=== PATIENT | female | born 1970 | race African-American/Black ===

== ENCOUNTER 2016-10-29 16:00 | Emergency (ER) | payer OTHER ==
[2016-10-29 16:05] VITALS: TEMP 98.3; BMI 27.9
[2016-10-29] MEDS ORDERED: ACETAMINOPHEN 325 MG TABLET (FP) PO ONE (17:13)
[2016-10-29] MEDS ORDERED: SODIUM CHLORIDE 1,000 ML IV STA (17:13)
[2016-10-29] MEDS ORDERED: METOCLOPRAMIDE HCL INJECTION 10 MG/2 ML VIAL IVPB ONE (17:13)
[2016-10-29] MEDS ORDERED: ACETAMINOPHEN 325 MG TABLET (FP) ONE (17:23)
[2016-10-29] MEDS ORDERED: METOCLOPRAMIDE HCL INJECTION 10 MG/2 ML VIAL ONE (17:23)
--- NOTE | 2016-10-29 17:23 | PDOC ---
History of Present Illness - General History Source: Patient Exam Limitations: No Limitations - History of Present Illness Initial Comments: 10/29/16 17:37 The patient is a 46 year old female, with a significant past medical history of hypothyroidism, RA, fibromyalgia, migraines and borderline diabetes, who presents to the emergency department with headache, dizziness, blurry vision and nausea. She describes her headache is bi-temporal, ranging from mild to moderate, without radiation. She reports that light and noise exacerbates her pain. She rates her headache as an 8/10 in severity. She states that when she had the headache started he had an aura type of sensation and began to feel dizzy. She reports that her blurry vision has resolved. She notes that her last migraine was 2 years ago. She states that she has been under a lot of stress lately, losing 2 family members in the last 3 days. The patient denies chest pain, shortness of breath. Denies fever, chills, vomit , diarrhea and constipation. Denies dysuria, frequency, urgency and hematuria. Family medical history: Mother, 2 aunts, niece; Aneurysm Allergies: Codeine Past surgical history: Abdominal hernia repair, left shoulder surgery. Social history: She denies alcohol, tobacco or drug use PCP - Dr. Yemi Ruiz <Kris Cobb - Last Filed: 10/29/16 17:36> - General History Source: Patient, Other Exam Limitations: No Limitations <Marquise Meyers - Last Filed: 10/31/16 15:15> - General Chief Complaint: Blurry Vision Stated Complaint: HEADACHE, BLURRY VISION Time Seen by Provider: 10/29/16 17:02 Past History <Kris Cobb - Last Filed: 10/29/16 17:36> - Past Medical History Asthma: No Cancer: No Diabetes: No Seizures: No Thyroid Disease: Yes (hypo) Other medical history: migraines, fibromyalgia, RA - Surgical History Abdominal Surgery: Yes (HERNIA) - Reproductive History Cervical CA: No Dysfunctional Uterine Bleeding: No Ectopic : No Endometrial CA: No Polycystic Ovaries: No - Immunization History Immunization Up to Date: Yes - Psycho/Social/Smoking Cessation Hx Anxiety: No Suicidal Ideation: No Smoking Status: No Smoking History: Never smoked Number of Cigarettes Smoked Daily: 0 Cigars Per Day: 0 Hx Alcohol Use: No Drug/Substance Use Hx: No Substance Use Type: None <Marquise Meyers - Last Filed: 10/31/16 15:15> - Past Medical History Allergies/Adverse Reactions: Allergies Allergy/AdvReac Type Severity Reaction Status Date / Time codeine [Codeine] Allergy Severe Itching Verified 10/29/16 16:05 Home Medications: Ambulatory Orders Levothyroxine [Synthroid -] 200 mcg PO DAILY 04/15/12 Metoclopramide HCl [Reglan] 10 mg PO Q6H PRN #15 tablet 10/29/16 Review of Systems - Review of Systems Able to Perform ROS?: Yes Comments:: 10/29/16 17:37 GENERAL/CONSTITUTIONAL: No fever or chills. No weakness. HEAD, EYES, EARS, NOSE AND THROAT: +Blurry vision. No ear pain or discharge. No sore throat. CARDIOVASCULAR: No chest pain or shortness of breath RESPIRATORY: No cough, wheezing, or hemoptysis. GASTROINTESTINAL: No nausea, vomiting, diarrhea or constipation. GENITOURINARY: No dysuria, frequency, or change in urination. MUSCULOSKELETAL: No joint or muscle swelling or pain. No neck or back pain. SKIN: No rash NEUROLOGIC: +Headache, dizziness. No loss of consciousness, or change in strength/sensation. ENDOCRINE: No increased thirst. No abnormal weight change HEMATOLOGIC/LYMPHATIC: No anemia, easy bleeding, or history of blood clots. ALLERGIC/IMMUNOLOGIC: No hives or skin allergy. <Kris Cobb - Last Filed: 10/29/16 17:36> *Physical Exam - Vital Signs Last Vital Signs Temp Pulse Resp BP Pulse Ox 98.3 F 74 20 118/71 98 10/29/16 16:02 10/29/16 16:02 10/29/16 16:02 10/29/16 16:02 10/29/16 16:02 - Physical Exam Comments: 10/29/16 17:37 GENERAL: Awake, alert, and fully oriented, in no acute distress HEAD: No signs of trauma, normocephalic, atraumatic EYES: PERRLA, EOMI, sclera anicteric, conjunctiva clear ENT: Auricles normal inspection, hearing grossly normal, nares patent, oropharynx clear without exudates. Moist mucosa NECK: Normal ROM, supple, no lymphadenopathy, JVD, or masses LUNGS: No distress, speaks full sentences, clear to auscultation bilaterally HEART: Regular rate and rhythm, normal S1 and S2, no murmurs, rubs or gallops, peripheral pulses normal and equal bilaterally. ABDOMEN: Soft, nontender, normoactive bowel sounds. No guarding, no rebound. No masses EXTREMITIES: Normal inspection, Normal range of motion, no edema. No clubbing or cyanosis. NEUROLOGY: Alert, awake, appropriate. Cranial nerves 2-12 intact. No deficits to light touch and temperature in face, upper extremities and lower extremities. No motor deficits in the in face, upper extremities and lower extremities. No pronator drift. Normoreflexic in the upper and lower extremities. Normal speech. Toes are down-going bilaterally. Gait is normal without ataxia. No dysmetria. No dysdiadochokinesis. No skew deviation. No abnormal nystagmus. Rhomberg is +/-. Head thrust test is +/-. Dixs-Hallpike test is +/-. SKIN: Warm, Dry, normal turgor, no rashes or lesions noted. <Kris Cobb - Last Filed: 10/29/16 17:36> - Vital Signs Last Vital Signs Temp Pulse Resp BP Pulse Ox 98.3 F 74 20 118/71 98 10/29/16 16:02 10/29/16 16:02 10/29/16 16:02 10/29/16 16:02 10/29/16 16:02 - Physical Exam Comments: 10/31/16 15:15 ADDENDUM TO SCRIBE NOTE: I did not test for: No skew deviation. No abnormal nystagmus. Rhomberg, Head thrust test, Dixs-Hallpike test or Babinski's. Please disregard this from the scribe section. <Marquise Meyers - Last Filed: 10/31/16 15:15> ED Treatment Course - Medications Given in the ED: ED Medications Discontinued Medications Generic Name Dose Route Start Last Admin Trade Name Onelq PRN Reason Stop Dose Admin Acetaminophen 650 mg 10/29/16 17:13 10/29/16 17:33 Tylenol - PO 10/29/16 17:14 650 mg ONCE ONE Administration Metoclopramide HCl 10 mg 10/29/16 17:13 10/29/16 17:33 Reglan Injection - IVPB 10/29/16 17:14 10 mg ONCE ONE Administration <Kris Cobb - Last Filed: 10/29/16 17:36> Medical Decision Making - Medical Decision Making 10/29/16 17:19 A portion of this note was written by my scribe, under my supervision. Vital Signs Temp Pulse Resp BP Pulse Ox 98.3 F 74 20 118/71 98 10/29/16 16:02 10/29/16 16:02 10/29/16 16:02 10/29/16 16:02 10/29/16 16:02 46 year old female with PMH hypothyroidism, RA, fibromyalgia, borderline DM, and family history of aneurysm presents to the emergency department for headaches since today. Patient reported a headache similar to her prior headaches. Last time she was here was a proximal a year ago which improved with IV Reglan. She has a history of migraines and has photophobia and tension-like headaches. It wasn't thunderclap in with a worse headache of her life. Reports feels somewhat her prior headaches. I do not suspect meningitis or cirrhotic or hemorrhage at this time. I do suspect that this is a migraine. We'll treat with IV medications and reassess. The patient is undergoing a significant amount stress with several of her family members recently dying from cancer. 10/29/16 19:41 Urine test negative. The patient reports feeling better with tylenol, IV reglan and toradol. Will discharge with neurology follow up. Return precautions given. Pt verbalizes understanding and agrees with plan. I discussed the physical exam findings, ancillary test results and final diagnoses with the patient. I answered all of the patient's questions. The patient was satisfied with the care received and felt comfortable with the discharge plan and treatment plan. The patient will call their primary care physician within 24 hours to arrange follow-up and will return to the Emergency Department with any new, persistant or worsening symptoms. <Marquise Meyers - Last Filed: 10/31/16 15:15> *DC/Admit/Observation/Transfer - Attestations Scribe Attestion: 10/29/16 17:38 Documentation prepared by Kris Cobb, acting as biomedical equipment tech for Marquise Meyers MD. <Kris Cobb - Last Filed: 10/29/16 17:36> - Discharge Dispostion Admit: No <Marquise Meyers - Last Filed: 10/31/16 15:15> Diagnosis at time of Disposition: Headache Qualifiers: Headache type: unspecified Headache chronicity pattern: acute headache Intractability: not intractable Qualified Code(s): R51 - Headache - Discharge Dispostion Disposition: HOME Condition at time of disposition: Improved - Prescriptions Prescriptions: Metoclopramide HCl [Reglan] 10 mg PO Q6H PRN #15 tablet PRN Reason: Headache/Nausea - Referrals Referrals: Yemi Ruiz [Primary Care Provider] - Marco Casarez MD [Staff Physician] - - Patient Instructions Printed Discharge Instructions: DI for Migraine, DI for Headache Additional Instructions: Take 500 mg naproxen every 12 hours as needed for headache. You may also take 10 mg reglan every 6 hours as needed for nausea/headache. Please follow up with a neurologist. If you have uncontrollable headache, persistent vomiting, please return to the ER for further evaluation.
[2016-10-29] MEDS ORDERED: KETOROLAC TROMETHAMINE 30 MG/1 ML VIAL IVPUSH ONE (18:27)
[2016-10-29] MEDS ORDERED: KETOROLAC TROMETHAMINE 60 MG/2 ML VIAL ONE (18:31)
[2016-10-29 19:59] VITALS: BP 108/72; PULSE 81
== END 2016-10-29 19:59 | disposition home or self-care (01) ==
LOC: JER 16:00
PROC: 3E0333Z Introduction of Anti-inflammatory into Peripheral Vein, Percutaneous Approach (ICD-10-PCS; principal; 2016-10-29)
PROC: 3E033GC Introduction of Other Therapeutic Substance into Peripheral Vein, Percutaneous Approach (ICD-10-PCS; 2016-10-29)
PROC: 3E0337Z Introduction of Electrolytic and Water Balance Substance into Peripheral Vein, Percutaneous Approach (ICD-10-PCS; 2016-10-29)
DX: R51 Headache (principal); E03.9 Hypothyroidism, unspecified; M06.9 Rheumatoid arthritis, unspecified; M79.7 Fibromyalgia
CPT/HCPCS: 84703; 96361; 96374; 96375; 99283-25

== ENCOUNTER 2017-10-26 16:51 | Emergency (ER) | payer OTHER ==
--- NOTE | 2017-10-26 17:21 | PDOC ---
Rapid Medical Evaluation Time Seen by Provider: 10/26/17 17:17 Medical Evaluation: Allergies Allergy/AdvReac Type Severity Reaction Status Date / Time codeine [Codeine] Allergy Severe Itching Verified 10/26/17 17:18 10/26/17 17:19 Pt presents to the ED: rt 2nd toe with swelling and red, no drainage, denies injury, rt hip pain worsened with ambulation, no injury, no swelling, no rash Pt on brief exam: vss, ambulatory, rt 2nd toe with edema, Pt ordered for: none Pt to proceed to the ED Discharge Disposition - Diagnosis Toe pain, right - Referrals - Patient Instructions - Post Discharge Activity
[2017-10-26 17:22] VITALS: BP 125/72; PULSE 89; TEMP 98.8; BMI 28.7
--- NOTE | 2017-10-26 18:16 | PDOC ---
History of Present Illness - General Chief Complaint: Pain Stated Complaint: SWOLLEN RT FOOT/HIP Time Seen by Provider: 10/26/17 17:17 History Source: Patient Exam Limitations: No Limitations - History of Present Illness Initial Comments: 10/26/17 18:20 47-year-old female with past medical history of rheumatoid arthritis, hypothyroidism, fibromyalgia and borderline diabetes. Patient presents to the emergency department complaining of slight redness/pain to the right base of her second toe/dorsally times one week with 3/10 dull nonradiating intermittent right-sided hip pain. Patient states pain is exacerbated on weight-bear and alleviated at rest. Patient denies any injury, fall, head/neck/back pains, chest pain, shortness of breath, extremity numbness or tingling sensation. Past History - Past Medical History Allergies/Adverse Reactions: Allergies Allergy/AdvReac Type Severity Reaction Status Date / Time codeine [Codeine] Allergy Severe Itching Verified 10/26/17 17:18 Home Medications: Ambulatory Orders Levothyroxine [Synthroid -] 200 mcg PO DAILY 04/15/12 Sulfamethoxazole/Trimethoprim [Bactrim Ds -] 1 tab PO BID #14 tablet 10/26/17 Asthma: No Cancer: No COPD: No Diabetes: No Seizures: No Thyroid Disease: Yes (hypo) - Surgical History Abdominal Surgery: Yes (HERNIA) - Reproductive History Cervical CA: No Dysfunctional Uterine Bleeding: No Ectopic : No Endometrial CA: No Polycystic Ovaries: No - Immunization History Immunization Up to Date: Yes - Suicide/Smoking/Psychosocial Hx Smoking Status: No Smoking History: Never smoked Number of Cigarettes Smoked Daily: 0 Cigars Per Day: 0 Hx Alcohol Use: No Drug/Substance Use Hx: No Substance Use Type: None Review of Systems - Review of Systems Able to Perform ROS?: Yes Comments:: 10/26/17 18:17 CONSTITUTIONAL: Absent: fever, chills, diaphoresis, generalized weakness, malaise, loss of appetite MUSCULOSKELETAL: +right pain/ right 2nd toe pain Absent: myalgia, arthralgia, joint swelling SKIN: Absent: rash, itching, pallorHEMATOLOGIC/IMMUNOLOGIC: Absent: easy bleeding, easy bruising, lymphadenopathy, frequent infections ENDOCRINE: Absent: unexplained weight gain, unexplained weight loss, heat intolerance, cold intolerance NEUROLOGIC: Absent: headache, focal weakness or paresthesias, dizziness, unsteady gait, seizure, mental status changes, bladder or bowel incontinence PSYCHIATRIC: Absent: anxiety, depression, suicidal or homicidal ideation, hallucinations. 10/26/17 18:20 Is the patient limited Danish proficient: No *Physical Exam - Vital Signs Last Vital Signs Temp Pulse Resp BP Pulse Ox 98.8 F 89 19 125/72 97 10/26/17 17:18 10/26/17 17:18 10/26/17 17:18 10/26/17 17:18 10/26/17 17:18 - Physical Exam Comments: 10/26/17 18:17 GENERAL: Well developed, well nourished. Awake and alert. No acute distress. HEENT: Normocephalic, atraumatic. PERRLA, EOMI. No conjunctival pallor. Sclera are non- icteric. Moist mucous membranes. Oropharynx is clear. NECK: Supple. Full ROM. No JVD. Carotid pulses 2+ and symmetric, without bruits. No thyromegaly. No lymphadenopathy. CARDIOVASCULAR: Regular rate and rhythm. No murmurs, rubs, or gallops. Distal pulses are 2+ and symmetric. PULMONARY: No evidence of respiratory distress. Lungs clear to auscultation bilaterally. No wheezing, rales or rhonchi. MUSCULOSKELETAL +Right hip pain on ext rotation, neg obv deformities, neg pain on palp right knee F.R>O>M./neg pain on palp/neg swelling RIght ankl;e F.R.O>M./neg pain on palp/2+dp pulse Neg achilles pain/deficit on palp RIght foot/2+pedal pulse right 2nd toe/+mild erythema to dorsal base without lymphangitis/neg drainage/ cap refill <2sec Normal range of motion at all joints. No bony deformities or tenderness. No CVA tenderness. EXTREMITIES: No cyanosis. No clubbing. No edema. No calf tenderness. SKIN: Warm and dry. Normal capillary refill. No rashes. No jaundice. NEUROLOGICAL: Alert, awake, appropriate. Cranial nerves 2-12 intact. No deficits to light touch and temperature in face, upper extremities and lower extremities. No motor deficits in the in face, upper extremities and lower extremities. Normoreflexic in the upper and lower extremities. Normal speech. Toes are down- going bilaterally. Gait is normal without ataxia. ED Treatment Course - RADIOLOGY Radiograph Interpretation: 10/26/17 19:08 Xray right hip; 3v neg fx/dislocations xray right toese; 2v neg fx/dislocations *DC/Admit/Observation/Transfer Diagnosis at time of Disposition: Toe pain, right, Cellulitis of toe, right, Hip pain, right - Discharge Dispostion Disposition: HOME Condition at time of disposition: Stable Admit: No - Prescriptions Prescriptions: Sulfamethoxazole/Trimethoprim [Bactrim Ds -] 1 tab PO BID #14 tablet - Referrals Referrals: Avinash Romo MD [Primary Care Provider] - Yosi Benedict MD [Staff Physician] - - Patient Instructions Printed Discharge Instructions: DI for Cellulitis -- Adult, DI for Chronic Pain -- Adult Additional Instructions: Ice; 20 mins on alternating with 20 mins off for 48 hours while awake. Rest Elevate Follow up with your orthopedic surgeon or the one listed on the discharge form. Return to the ER for severe/persistent/worsening symptoms, extremity numbness/ tingling sensation. - Post Discharge Activity Progress Note - Progress Note Progress Note: Patient refuses U . Patient states she is premenopausal and is not . Patient states she wishes to sign a form stating that she will be held liable if she is as she gets her x-rays in the emergency department tonight.
[2017-10-26] MEDS ORDERED: IBUPROFEN 400 MG TABLET (FP) PO ONE ×2 (19:07→19:12)
[2017-10-26] MEDS ORDERED: SULFAMETHOXAZOLE/TRIMETHOPRIM 800MG/160MG D.S. TABLET PO ONE (19:08)
[2017-10-26] MEDS ORDERED: SULFAMETHOXAZOLE/TRIMETHOPRIM 800MG/160MG D.S. TABLET ONE (19:12)
== END 2017-10-26 19:15 | disposition home or self-care (01) ==
LOC: JERFT 16:51
DX: L03.031 Cellulitis of right toe (principal); M25.551 Pain in right hip; E03.9 Hypothyroidism, unspecified; E11.9 Type 2 diabetes mellitus without complications; M06.9 Rheumatoid arthritis, unspecified; M79.7 Fibromyalgia
CPT/HCPCS: 73502-TC-RT; 73660-TC; 99281-25

== ENCOUNTER 2019-01-14 13:56 | Emergency (ER) | payer OTHER ==
[2019-01-14 14:05] VITALS: BP 119/76; PULSE 83; TEMP 98.4; BMI 32.3
[2019-01-14] MEDS ORDERED: IBUPROFEN 400 MG TABLET (FP) PO ONE ×2 (14:30→14:32)
--- NOTE | 2019-01-14 14:59 | PDOC ---
History of Present Illness - General Chief Complaint: Pain Stated Complaint: BILAT KNEE PAIN Time Seen by Provider: 01/14/19 14:11 History Source: Patient Exam Limitations: No Limitations Past History - Past Medical History Allergies/Adverse Reactions: Allergies Allergy/AdvReac Type Severity Reaction Status Date / Time codeine [Codeine] Allergy Severe Itching Verified 01/14/19 14:05 Home Medications: Ambulatory Orders Levothyroxine [Synthroid -] 200 mcg PO DAILY 04/15/12 Asthma: No Cancer: No COPD: No Diabetes: No Seizures: No Thyroid Disease: Yes (hypo) - Surgical History Abdominal Surgery: Yes (HERNIA) - Reproductive History Cervical CA: No Dysfunctional Uterine Bleeding: No Ectopic : No Endometrial CA: No Polycystic Ovaries: No - Immunization History Immunization Up to Date: Yes - Suicide/Smoking/Psychosocial Hx Smoking Status: No Smoking History: Never smoked Have you smoked in the past 12 months: No Number of Cigarettes Smoked Daily: 0 Cigars Per Day: 0 Information on smoking cessation initiated: No Hx Alcohol Use: Yes Drug/Substance Use Hx: No Substance Use Type: None *Physical Exam - Vital Signs Last Vital Signs Temp Pulse Resp BP Pulse Ox 98.4 F 83 18 119/76 100 01/14/19 14:02 01/14/19 14:02 01/14/19 14:02 01/14/19 14:02 01/14/19 14:02 - Physical Exam General Appearance: No: Apparent Distress Respiratory/Chest: positive: Lungs Clear, Normal Breath Sounds. negative: Respiratory Distress Cardiovascular: positive: Regular Rhythm, Regular Rate, S1, S2. negative: Murmur Musculoskeletal: positive: Other (mild swelling along lateral aspect of L knee, no deformity of extremities, FROM of BLE; B/L feet also unremarkable with no skin lesions or rash noted, no corns, no calluses; no swelling or erythema of extremities, pedal pulses 2+ B/L, normal skin color) Extremity: positive: Normal Capillary Refill, Normal Range of Motion. negative : Coldness, Cyanosis, Pedal Edema, Swelling, Calf Tenderness, Erythema Integumentary: positive: Normal Color, Dry, Warm. negative: Rash Neurologic: positive: Alert, Normal Mood/Affect ED Treatment Course - RADIOLOGY Radiology Studies Ordered: Category Date Time Status FOOT-LEFT [RAD] Stat Radiology 01/14/19 14:29 Ordered FOOT-RIGHT [RAD] Stat Radiology 01/14/19 14:29 Ordered KNEE 4 POS-LEFT [RAD] Stat Radiology 01/14/19 14:29 Ordered KNEE 4 POS-RIGHT [RAD] Stat Radiology 01/14/19 14:29 Ordered - Medications Given in the ED: ED Medications Discontinued Medications Generic Name Dose Route Start Last Admin Trade Name Vanessa PRN Reason Stop Dose Admin Ibuprofen 800 mg 01/14/19 14:30 01/14/19 14:39 Motrin - PO 01/14/19 14:31 800 mg ONCE ONE Administration Medical Decision Making - Medical Decision Making 48 y/o F hx of hypothyroidism, fibromyalgia, DM presents with B/L knee pain (L>R ). L knee has been bothering her for around a year and R knee for past several months, but pain exacerbated past few weeks. Denies trauma. Has been taking Naprosyn which has been helping with her pain. Has not seen PCP re: the pain. Also mentions pain beneath toes of B/L feet the past few weeks. Denies numbness/ tingling/weakness of extremities. B/L knee pain - probable arthritis Plan: Xray, Motrin B/L toe pain - PE unremarkable, cause unclear, ?Fenton neuroma though nothing obviously palpable on exam Plan: Xray 01/14/19 14:56 Xrays with no acute findings Will refer to podiatry for further eval 01/14/19 15:23 *DC/Admit/Observation/Transfer Diagnosis at time of Disposition: Toe pain, bilateral Knee pain, bilateral Qualifiers: Chronicity: chronic Qualified Code(s): M25.561 - Pain in right knee; M25.562 - Pain in left knee; G89.29 - Other chronic pain - Discharge Dispostion Disposition: HOME Condition at time of disposition: Stable Decision to Admit order: No - Referrals Referrals: Avinash Romo MD [Primary Care Provider] - 2 Days Jaylan Staples MD [Staff Physician] - 2 Days - Patient Instructions Printed Discharge Instructions: DI for Arthritis, Fenton Neuroma Additional Instructions: Thank you for choosing [facility]. It was a pleasure taking care of you. Your xrays were unremarkable Possibly, your knee pain is related to arthritis. Continue Naprosyn if that is helping with your pain. You may possibly have Fenton's neuroma - avoid wearing high heeled shoes. You were referred to learning support resource room teacher for further eval. Continue follow-up with your doctor Return to the Emergency Department if your symptoms worsen or persist or have other concerning symptoms. - Post Discharge Activity
== END 2019-01-14 15:35 | disposition home or self-care (01) ==
LOC: JERFT 13:56
DX: M25.561 Pain in right knee (principal); G89.29 Other chronic pain; E03.9 Hypothyroidism, unspecified
CPT/HCPCS: 73564-TC-LT-FY; 73564-TC-RT-FY; 73630-TC-LT; 73630-TC-RT-FY; 99281-25

== ENCOUNTER 2021-11-06 04:35 | Day surgery (SDC) | payer OTHER ==
[2021-10-31 13:16] VITALS: BMI 34.2
[~2021-11-06 04:35] MED LIST: ACETAMINOPHEN 325 MG TABLET (FP) PO PRN; EPINEPHrine/PF 1 MG/1 ML (1:1,000) AMPULE IO ONE
[2021-11-06] MEDS ORDERED: KETOROLAC TROMETHAMINE 0.5% EYE DROP 1 DROP DROPS ONE (09:08)
[2021-11-06] MEDS ORDERED: PHENYLEPHRINE 2.5% OPTHALMIC DROP BOTTLE ONE (09:08)
[2021-11-06] MEDS ORDERED: CYCLOPENTOLATE HCL 1% OPHTH SOLN 2 ML BOTTLE ONE (09:08)
[2021-11-06] MEDS ORDERED: TROPICAMIDE 1% OPHTH SOLN 15 ML BOTTLE ONE (09:08)
[2021-11-06] MEDS ORDERED: OFLOXACIN 0.3% OPHTHALMIC SOLUTION 5 ML BOTTLE ONE (09:08)
[2021-11-06] MEDS: TROPICAMIDE 1% OPHTH SOLN 15 ML BOTTLE OP SCH ×3 (09:30→09:43)
[2021-11-06] MEDS: CYCLOPENTOLATE HCL 1% OPHTH SOLN 2 ML BOTTLE OP SCH ×3 (09:30→09:44)
[2021-11-06] MEDS: KETOROLAC TROMETHAMINE 0.5% EYE DROP 1 DROP DROPS OP SCH ×3 (09:30→09:44)
[2021-11-06] MEDS: PHENYLEPHRINE 2.5% OPHTH SOLN 15 ML BOTTLE OP SCH ×3 (09:30→09:43)
[2021-11-06] MEDS: OFLOXACIN 0.3% OPHTHALMIC SOLUTION 5 ML BOTTLE OP SCH ×3 (09:30→09:44)
[2021-11-06] MEDS ORDERED: GLYCOPYRROLATE 0.2 MG/1 ML VIAL ONE (11:11)
[2021-11-06] MEDS ORDERED: MIDAZOLAM HCL 2 MG/2 ML SINGLE DOSE VIAL ONE (11:12)
[2021-11-06] MEDS ORDERED: TETRACAINE 0.5% OPHTH SOLN 2 ML BOTTLE OD ONE (11:32)
[2021-11-06] MEDS ORDERED: POVIDONE-IODINE 5% OPHTHALMIC PREP 30 ML SOLUTION OD ONE (11:33)
[2021-11-06] MEDS ORDERED: LIDOCAINE HCL 1% PRESERVATIVE FREE - 30ML VIAL IO ONE (11:38)
[2021-11-06] MEDS ORDERED: BSS (NA/CA/MG/K) BALANCED SALT SOLUTION OPHTH SOLN 15 ML BOTTLE IO ONE (11:39)
[2021-11-06] MEDS ORDERED: CHONDROITIN SU A/HYALUR SOD 1 KIT IO ONE (11:42)
[2021-11-06] MEDS ORDERED: EPINEPHrine/PF 1 MG/1 ML (1:1,000) AMPULE IO ONE (11:48)
[2021-11-06] MEDS ORDERED: EPINEPHrine/PF 1 MG/1 ML (1:1,000) AMPULE ONE (12:02)
[2021-11-06] MEDS ORDERED: POVIDONE-IODINE 5% OPHTHALMIC PREP 30 ML SOLUTION ONE (12:02)
[2021-11-06] MEDS ORDERED: TETRACAINE 0.5% OPHTH SOLN 2 ML BOTTLE ONE (12:02)
[2021-11-06 15:12] VITALS: BP 102/70; PULSE 78; TEMP 97.9
== END 2021-11-06 14:05 | disposition home or self-care (01) ==
LOC: JASU-SURG 04:35
PROVIDERS: ATTEND Ophthalmology
PROC: 08RJ3JZ Replacement of Right Lens with Synthetic Substitute, Percutaneous Approach (ICD-10-PCS; principal; 2021-11-06 11:00)
DX: H26.9 Unspecified cataract (principal)

== ENCOUNTER 2022-08-12 22:00 | Emergency (ER) | payer OTHER ==
[2022-08-12 22:20] VITALS: BP 102/72; PULSE 82; RESP 19; TEMP 98.3; BMI 33.9
[2022-08-13] MEDS ORDERED: diazePAM 5 MG TABLET PO ONE (00:39)
[2022-08-13] MEDS ORDERED: KETOROLAC TROMETHAMINE 30 MG/1 ML VIAL IM ONE (00:39)
[2022-08-13] MEDS ORDERED: ACETAMINOPHEN 500 MG TABLET (FP) PO ONE (00:39)
[2022-08-13] MEDS ORDERED: diazePAM 5 MG TABLET ONE (01:16)
[2022-08-13] MEDS ORDERED: ACETAMINOPHEN 325 MG TABLET (FP) ONE (01:16)
[2022-08-13] MEDS ORDERED: KETOROLAC TROMETHAMINE 30 MG/1 ML VIAL ONE (01:17)
== END 2022-08-13 01:54 | disposition home or self-care (01) ==
LOC: JER 22:00 → JERFT 22:00
PROC: 3E023GC Introduction of Other Therapeutic Substance into Muscle, Percutaneous Approach (ICD-10-PCS; principal; 2022-08-12)
DX: M54.6 Pain in thoracic spine (principal)
CPT/HCPCS: 71046-TC-FY; 99284-25

== ENCOUNTER 2023-11-26 11:55 | Emergency (ER) | payer OTHER ==
[2023-11-26 12:05] VITALS: BP 127/80; PULSE 78; RESP 20; TEMP 97.8; BMI 35.8
[2023-11-26 13:49] LABS: BASO % 1.1 % (0-2.0); HEMATOCRIT 39.6 % (32.4-45.2); MONO % 5.6 % (3.8-10.2); NEUT % 40.3 % (42.8-82.8); PLATELET COUNT 251 10^3/uL (134-434); WHITE BLOOD COUNT 6.6 K/mm3 (4.0-10.0)
[2023-11-26 13:57] LABS: ACTIVATED PTT 26.8 SECONDS (25.2-36.5); INR 1.04 (0.83-1.09); PROTHROMBIN TIME (PATIENT) 12.1 SEC (9.7-13.0)
[2023-11-26 15:24] LABS: POTASSIUM 3.7 mmol/L (3.5-5.1)
[2023-11-26 15:26] LABS: CALCIUM 9.2 mg/dL (8.5-10.1)
[2023-11-26 15:27] LABS: ALBUMIN 3.4 g/dl (3.4-5.0); BLOOD UREA NITROGEN 11.1 mg/dL (7-18)
[2023-11-26 15:31] LABS: BILIRUBIN,TOTAL 0.3 mg/dL (0.2-1)
[2023-11-26 15:32] LABS: TOT PROT 7.4 g/dl (6.4-8.2)
[2023-11-26 15:35] LABS: N-TERMINAL BNP 17.5 pg/ml (5-125)
== END 2023-11-26 17:10 | disposition home or self-care (01) ==
LOC: JER 11:55
DX: R51.9 Headache, unspecified (principal); R60.9 Edema, unspecified; Z20.822 Contact with and (suspected) exposure to COVID-19
CPT/HCPCS: 0241U-QW; 36415; 71045-TC-FY; 80053; 82550; 83880; 84439; 84443; 84484; 85025; 85610; 85730; 93005; 93010; 93970-TC; 99285-25